=== PATIENT | female | born 1995 | race Caucasian/White ===

== ENCOUNTER 2018-08-25 16:00 | Emergency (ER) | payer OTHER ==
[~2018-08-25] VITALS: Ht 157.4 cm; Wt 99.8 kg
[~2018-08-25 16:00] MED LIST: ALEVE220 MG PO; AMOXICILLIN500 MG PO; MOTRIN400 MG PO; Motrin,Rufen800 MG PO; PREDNICOT20 MG PO; ZITHROMAX250 MG PO
[2018-08-25 17:19] LABS: BASO % 0.3 % (0.0-1.0); HEMATOCRIT 41.2 % (37.0-47.0); HEMOGLOBIN 13.5 g/dl (12.0-16.0); LYMPH # 1.1 10*3/uL (1.3-4.4); LYMPH % 11.6 % (27.0-41.0); MEAN CELL VOLUME 87.5 fl (81.0-99.0); MEAN CORPUSCULAR HGB 28.7 pg (27.0-31.0); MEAN CORPUSCULAR HGB CONC 32.8 g/dl (33.0-37.0); MEAN PLATELET VOLUME 10.6 fl (9.6-12.3); MONO # 0.8 10*3/uL (0.1-1.0); MONO % 7.8 % (3.0-9.0); NEUT # 7.8 10*3/uL (2.3-7.9); PLATELET COUNT AUTOMATED 226 10*3/uL (130-400); RED BLOOD COUNT 4.71 10*6/uL (4.10-5.10); WHITE BLOOD COUNT 9.7 10*3/uL (4.8-10.8)
[2018-08-25] MEDS ORDERED: PREDNISONE10 MG PO (17:34)
[2018-08-25 17:47] LABS: ALBUMIN 3.6 gm/dl (3.1-4.5); BUN 9 mg/dl (7-24); CHLORIDE 105 mmol/L (98-107); CREATININE 0.68 mg/dL (0.55-1.02); POTASSIUM 3.8 mmol/L (3.5-5.1); SGOT/AST 22 IU/L (3-35); SGPT/ALT 23 U/L (12-78); SODIUM 136 mmol/L (136-145); TOTAL PROTEIN 8.1 gm/dL (6.4-8.2)
[2018-08-25 17:48] LABS: ALKALINE PHOSPHATASE 104 U/L (45-117)
== END 2018-08-25 18:04 | disposition home or self-care (01) ==
LOC: ED 16:00
PROVIDERS: Nurse Practitioner Family
DX: B27.99 Infectious mononucleosis, unspecified with other complication (principal); R03.0 Elevated blood-pressure reading, without diagnosis of hypertension; Z79.899 Other long term (current) drug therapy

== ENCOUNTER → 2018-10-16 | Outpatient (CLI) | payer OTHER ==
[~2018-10-16] MED LIST changes: +ACETAZOLAMIDE250 MG PO; +PREDNISONE10 MG PO
[2018-10-16 12:44] LABS: BUN 13 mg/dl (7-24); CREATININE 0.66 mg/dL (0.55-1.02)
== END | disposition home or self-care (01) ==
LOC: LAB 11:21
PROVIDERS: Ophthalmology
DX: G93.2 Benign intracranial hypertension (principal); H47.13 Papilledema associated with retinal disorder

== ENCOUNTER → 2019-01-17 | Outpatient (CLI) | payer OTHER ==
[2019-01-17 14:51] LABS: BUN 18 mg/dl (7-24); CHLORIDE 117 mmol/L (98-107); CREATININE 0.77 mg/dL (0.55-1.02); POTASSIUM 4.2 mmol/L (3.5-5.1); SODIUM 144 mmol/L (136-145)
== END | disposition home or self-care (01) ==
LOC: ORTHO 00:25 → LAB 00:25 → ORTHO 14:07
DX: G93.2 Benign intracranial hypertension (principal)

== ENCOUNTER → 2022-10-08 | Outpatient (CLI) | payer OTHER | END | disposition home or self-care (01) | LOC: ORTHO 01:07 | PROVIDERS: ATTEND Orthopaedic Surgery | DX: M79.642 Pain in left hand (principal) ==

== ENCOUNTER → 2023-01-21 | Outpatient (CLI) | payer BC | END | disposition home or self-care (01) | LOC: US 15:00 | PROVIDERS: ATTEND Family Medicine | DX: M79.642 Pain in left hand (principal) ==